=== PATIENT | male | born 2000 | race Caucasian/White ===

== ENCOUNTER 2024-02-24 11:27 | Emergency (ER) | payer SELFPAY ==
[~2024-02-24] VITALS: Ht 180.3 cm; Wt 77.6 kg
[2024-02-24] MEDS ORDERED: VISTARIL25 MG PO (12:49)
[2024-02-24 12:54] VITALS: BP 131/97
== END 2024-02-24 12:54 | disposition home or self-care (01) ==
LOC: ED 11:27
DX: F41.9 Anxiety disorder, unspecified (principal); G47.00 Insomnia, unspecified; Z88.8 Allergy status to other drugs, medicaments and biological substances
CPT/HCPCS: 99282